=== PATIENT | female | born 1950 | race Caucasian/White ===

== ENCOUNTER 2018-10-30 19:00 | Outpatient (CLI) | payer MEDICARE | END 2018-10-30 23:59 | disposition home or self-care (01) | LOC: D.MAMMO 19:00 | DX: Z12.31 Encounter for screening mammogram for malignant neoplasm of breast (principal) ==

== ENCOUNTER 2019-02-06 03:05 | Emergency (ER) | payer MEDICARE ==
[~2019-02-06] VITALS: Ht 162.6 cm; Wt 52.3 kg
[2019-02-06 03:10] VITALS: Ht 162.6 cm; Wt 52.3 kg
[2019-02-06] MEDS ORDERED: CYMBALTA20 MG (03:20)
[2019-02-06 03:31] LABS: BASOPHILS 0.3 % (0-2); EOSINOPHILS 2.2 % (0-7); HEMATOCRIT 43.4 % (36.0-48.0); HEMOGLOBIN 14.7 g/dL (12-16); IMMATURE GRANULOCYTES 0.3 % (0-5); LYMPHOCYTES 31.8 % (15-50); MCH 29.5 pg (26.0-34.0); MCHC 33.9 g/dL (31.0-37.0); MONOCYTES 9.2 % (2-11); NEUTROPHILS 56.2 % (40-80); PLATELET COUNT 292 10x3/uL (130-400); RBC 4.99 10x6/uL (4.00-5.40); RDW 12.6 % (11.5-14.5); WBC 14.6 10x3/uL (4.8-10.8)
[2019-02-06 03:41] LABS: APTT 23.7 SECONDS (22.8-39.4); INR 0.92 (0.85-1.17); PROTIME 11.9 SECONDS (11.6-15.0)
[2019-02-06 03:51] LABS: ALBUMIN 3.5 g/dL (3.4-5.0); ALKALINE PHOSPHATASE 99 U/L (46-116); ALT (SGPT) 23 U/L (10-68); BILIRUBIN - TOTAL 0.78 mg/dL (0.2-1.3); CALC OSMOLALITY 276 mosm/kg (275-300); CALCIUM 8.8 mg/dL (8.5-10.1); CARBON DIOXIDE 21.3 mmol/L (21.0-32.0); CHLORIDE - SERUM 102 mmol/L (98-107); GLUCOSE 103 mg/dL (74-106); POTASSIUM - SERUM 4.1 mmol/L (3.5-5.1); PROTEIN - SERUM 8.1 g/dL (6.4-8.2); SODIUM 138 mmol/L (136-145); UREA NITROGEN 14 mg/dL (7-18); eGFR NON AFRICAN AMERICAN 59 mL/min (90-120)
[2019-02-06 03:57] LABS: CKMB 0.1 U/L (0.0-3.6); CREATINE KINASE 62 UL (21-215); MAGNESIUM - SERUM 2.3 mg/dL (1.8-2.4); THYROID STIMULATING HORMONE 7.54 uIU/mL (0.36-3.74)
[2019-02-06 04:01] LABS: TROPONIN-I < 0.017 ng/mL (0.000-0.060)
[2019-02-06] MEDS ORDERED: LEVO-T50 MCG PO (06:25)
[2019-02-06 06:59] VITALS: BP 116/64
== END 2019-02-06 06:45 | disposition home or self-care (01) ==
LOC: D.ER 03:05
PROVIDERS: Family Medicine
DX: E03.9 Hypothyroidism, unspecified (principal); D72.829 Elevated white blood cell count, unspecified; R53.1 Weakness

== ENCOUNTER 2020-03-17 08:32 | Day surgery (SDC) | payer OTHER, MEDICARE ==
[~2020-03-17] VITALS: Ht 152.4 cm; Wt 53.5 kg
[~2020-03-17 08:32] MED LIST: CYMBALTA20 MG; ESTRACE2 MG PO; KLONOPIN0.5 MG PO; LEVO-T50 MCG PO; PROMETRIUM100 MG PO
[2020-03-17 09:03] LABS: HEMOGLOBIN 13.4 g/dL (12-16); MCH 29.7 pg (26.0-34.0); MCHC 32.7 g/dL (31.0-37.0); MCV 90.9 fL (80.0-100.0); MEAN PLATELET VOLUME 9.7 fL (7.4-10.4); RBC 4.51 10x6/uL (4.00-5.40); RDW 12.6 % (11.5-14.5)
[2020-03-17 09:15] VITALS: BP 139/73; Ht 152.4 cm; Wt 53.5 kg
--- NOTE | 2020-03-17 12:38 | NUR ---
PT STATES HAVING FEELINGS OF ANXIETY. ADMINISTERED VALIUM 5 MG PO PER ORDER. WILL CONTINUE TO MONITOR.
--- NOTE | 2020-03-17 18:46 | NUR ---
1845 IV REMOVED AND INSTRUCTIONS GIVEN
--- NOTE | 2020-03-19 12:50 | OP ---
PATIENT NAME: MINA HACKETT MEDICAL RECORD: [id number] :54 LOCATION:[facility] ADMISSION DATE: SURGEON: TERRY WIGGINS DO DATE OF OPERATION: 03/17/2020 PROCEDURE PERFORMED: Left shoulder arthroscopy with rotator cuff repair with Regeneten. Labral debridement, biceps tenodesis, subacromial decompression, distal clavicle excision. PREOPERATIVE DIAGNOSIS: Left shoulder full thickness rotator cuff tear, SLAP tear, subacromial impingement, and acromioclavicular joint arthritis. POSTOPERATIVE DIAGNOSIS: Left shoulder full thickness rotator cuff tear, SLAP tear, subacromial impingement, and acromioclavicular joint arthritis. INDICATIONS: Ms. Hackett is a 69-year-old female who has had left shoulder pain for quite some time. I saw her in my office got an MRI showing the above findings. I informed her of the risks including infection, bleeding, damage to nerves and vessels, retear of rotator cuff tendon, continued pain, arthrofibrosis and failure of implants and she signed the consent. SURGEON: Terry Wiggins DO DESCRIPTION OF PROCEDURE: The patient was taken to the operative suite, laid in right lateral decubitus position. After receiving a block by anesthesia in the preoperative area, she was given 900 mg of clindamycin. The patient was sedated and LMA was placed. The left upper extremity was then prepped and draped in sterile fashion. A timeout was performed; everyone was in agreement with the correct side, site, patient and procedure. I then began by inserting the 18-gauge spinal needle into the shoulder joint through the posterior portal and inflating the shoulder joint with 60 mL normal saline. Trocar was then entered in after establishing portal with 11-blade scalpel. Anterior portal was then established with 18-gauge spinal needle and 11-blade scalpel and trocar brought in through the shoulder. I then brought in the burner and debrided the labrum and then did bicep tenotomy. Inspecting the subscapularis tendon, which was in good repair. It was full thickness quite large without retraction and tear of the supraspinatus and infraspinatus. The articular surface was in good repair and then went into the subacromial space and establishing a lateral portal with 18-gauge spinal needle and 11-blade scalpel did a decortication of the proximal humerus at the greater tuberosity in preparation for the repair. I then did a subacromial decompression through the anterior portal, distal clavicle excision, open the AC joint approximately 7 mm. I then opened up the lateral portal with a 15 blade scalpel made blunt dissection down with 2 [place]'s to the tear and put in a medial row anchors, 2 of them and aa bit through the tendon and brought over to a nice repair of the lateral row. I then put on the Regeneten patch implant rather the Regeneten implant was large, stapled it into place. I then addressed the bicep tenodesis. I made an incision over the anterior humerus, made careful dissection down to the long head of the biceps tendon, fished it out and put a unicortical hole in the humerus with a drill and then used a JuggerLoc stitch with the loop and brought the tendon through it and cinched down, cut the excess suture and put in through the long head of bicep tendon and sutured this down and removed the excess tendon and sutured it. The suture sites were then irrigated and closed by myself and Joy Pike, certified surgical first assistant student with 2-0 Vicryl in inverted interrupted fashion, 4-0 Monocryl ran on the skin. The portal sites, anterior portal and the OPERATIVE REPORT [id number] [place] JO posterior portal closed with 4-0 Monocryl in inverted interrupted fashion. She was then dressed with Dermabond glue and Telfa and Tegaderm. Awakened and taken to recovery in stable condition, placed in a sling. BLOOD LOSS: Minimal. COMPLICATIONS: None. TRANSINT:[id number] Voice Confirmation ID: [id number] DOCUMENT ID: [id number] TERRY WIGGINS DO at 1250 CC: [id number] DICTATION DATE: 03/17/20 174 FRUIT STUFFER: 03/18/20 0548 [facility] 03/17/20 [facility] [address] [place] [address]
== END 2020-03-17 19:15 | disposition home or self-care (01) ==
LOC: D.OPS 08:32 → D.PAN 08:32 → D.OPS 15:00
PROVIDERS: Anesthesiology; ATTEND Orthopaedic Surgery
DX: M75.102 Unspecified rotator cuff tear or rupture of left shoulder, not specified as traumatic (principal); S43.432A Superior glenoid labrum lesion of left shoulder, initial encounter; M25.812 Other specified joint disorders, left shoulder; M19.012 Primary osteoarthritis, left shoulder; X58.XXXA Exposure to other specified factors, initial encounter

== ENCOUNTER 2020-11-07 16:00 | Outpatient (CLI) | payer MEDICARE, MEDICAID ==
[2020-03-17 09:15] VITALS: BMI 23.0
== END 2020-11-07 23:59 | disposition home or self-care (01) ==
LOC: D.MAMMO 16:00
PROVIDERS: ATTEND Family Medicine
DX: Z12.31 Encounter for screening mammogram for malignant neoplasm of breast (principal)

== ENCOUNTER → 2020-11-16 12:59 | Outpatient (CLI) | payer OTHER, MEDICAID ==
[2020-03-17 09:15] VITALS: BMI 23.0
== END | disposition home or self-care (01) ==
LOC: D.US 12:59
PROVIDERS: ATTEND Family Medicine
DX: R92.8 Other abnormal and inconclusive findings on diagnostic imaging of breast (principal)